=== PATIENT | female | born 1980 | race Caucasian/White ===

== ENCOUNTER 2017-10-23 11:32 | Emergency (ER) | payer BC | END 2017-10-23 12:30 | disposition home or self-care (01) | LOC: M ED 11:32 | DX: M54.12 Radiculopathy, cervical region (principal); M62.830 Muscle spasm of back; F32.9 Major depressive disorder, single episode, unspecified; Z87.891 Personal history of nicotine dependence; Z79.899 Other long term (current) drug therapy | CPT/HCPCS: 99282 ==